=== PATIENT | female | born 1965 | race Caucasian/White ===

== ENCOUNTER 2023-06-06 15:04 | Outpatient (RCR) | payer OTHER, SELFPAY | END 2023-06-06 23:59 | disposition home or self-care (01) | LOC: RPT 15:04 | PROVIDERS: ATTENDING PHYSICIAN Physician Assistant Surgical; FAMILY PHYSICIAN Family Medicine | DX: M54.16 Radiculopathy, lumbar region (principal); M51.26 Other intervertebral disc displacement, lumbar region; M48.062 Spinal stenosis, lumbar region with neurogenic claudication; Z73.6 Limitation of activities due to disability | CPT/HCPCS: 97110; 97140; 97162 ==

== ENCOUNTER 2023-07-04 15:39 | Outpatient (RCR) | payer OTHER, SELFPAY | END 2023-07-04 23:59 | disposition home or self-care (01) | LOC: RPT 15:39 | PROVIDERS: ATTENDING PHYSICIAN Physician Assistant Surgical; FAMILY PHYSICIAN Family Medicine | DX: M54.16 Radiculopathy, lumbar region (principal); M51.26 Other intervertebral disc displacement, lumbar region; M48.062 Spinal stenosis, lumbar region with neurogenic claudication; Z73.6 Limitation of activities due to disability | CPT/HCPCS: 97110; 97140 ==

== ENCOUNTER → 2023-07-07 13:51 | Outpatient (REF) | payer OTHER, SELFPAY | LOC: MRI 3T 13:51 | PROVIDERS: ATTENDING PHYSICIAN Psychiatry & Neurology Neurology; FAMILY PHYSICIAN Family Medicine | DX: G44.52 New daily persistent headache (NDPH) (principal) | CPT/HCPCS: 70544; 70553; A9575 ==

== ENCOUNTER 2023-07-25 15:41 | Outpatient (RCR) | payer OTHER, SELFPAY | END 2023-07-25 23:59 | disposition home or self-care (01) | LOC: RPT 15:41 | PROVIDERS: ATTENDING PHYSICIAN Physician Assistant Surgical; FAMILY PHYSICIAN Family Medicine | DX: M54.16 Radiculopathy, lumbar region (principal); M51.26 Other intervertebral disc displacement, lumbar region; M48.062 Spinal stenosis, lumbar region with neurogenic claudication; Z73.6 Limitation of activities due to disability; R26.89 Other abnormalities of gait and mobility | CPT/HCPCS: 97110; 97140 ==

== ENCOUNTER → 2023-08-04 13:22 | Outpatient (REF) | payer OTHER, SELFPAY | LOC: RAD 13:22 | PROVIDERS: ATTENDING PHYSICIAN Family Medicine | DX: R07.81 Pleurodynia (principal) | CPT/HCPCS: 71101 ==

== ENCOUNTER → 2023-09-20 | Outpatient (REF) | payer OTHER, SELFPAY | LOC: DHSLP | PROVIDERS: ATTENDING PHYSICIAN Psychiatry & Neurology Neurology | DX: G47.30 Sleep apnea, unspecified (principal) | CPT/HCPCS: 95810 ==

== ENCOUNTER → 2023-11-24 05:58 | Day surgery (SDC) | payer OTHER, SELFPAY | LOC: GI 05:58 | PROVIDERS: ATTENDING PHYSICIAN Internal Medicine Gastroenterology | DX: K21.00 Gastro-esophageal reflux disease with esophagitis, without bleeding (principal); K22.2 Esophageal obstruction; K22.89 Other specified disease of esophagus; K44.9 Diaphragmatic hernia without obstruction or gangrene; K31.7 Polyp of stomach and duodenum | CPT/HCPCS: 43239; 88305 ==

== ENCOUNTER → 2024-03-12 14:36 | Outpatient (REF) | payer OTHER, SELFPAY | LOC: WDC 14:36 | PROVIDERS: ATTENDING PHYSICIAN Nurse Practitioner Family; FAMILY PHYSICIAN Family Medicine | DX: Z12.31 Encounter for screening mammogram for malignant neoplasm of breast (principal) | CPT/HCPCS: 77063; 77067 ==

== ENCOUNTER 2024-06-18 06:31 | Day surgery (SDC) | payer OTHER, SELFPAY ==
[2024-06-14 14:07] VITALS: BMI 30.1
[2024-06-18] VITALS (17 sets, daily range): BP systolic 83–147; BP diastolic 57–79; BMI 30.1
[2024-06-18] MEDS: NORMOSOL-R/PLASMALYTE-A 1000 IV (10:12)
[2024-06-18] MEDS: Pyridium 200 MG PO (10:54)
[2024-06-18] MEDS: BENADRYL 12.5 MG IV (12:00)
[2024-06-18] MEDS: PEPCID 20 MG IV (12:06)
[2024-06-18] MEDS: HEPARIN 5000 UNITS SC (13:01)
[2024-06-18] MEDS: ZOFRAN 4 MG IV (15:56)
[2024-06-18] MEDS: DILAUDID 0.5 MG IV ×2 (16:10→16:50)
[2024-06-18] MEDS: TORADOL 15 MG IV (16:18)
[2024-06-18] MEDS: COMPAZINE 5 MG IV (16:38)
== END 2024-06-18 19:30 | disposition home or self-care (01) ==
LOC: SDS 06:31
PROVIDERS: ATTENDING PHYSICIAN Obstetrics & Gynecology; FAMILY PHYSICIAN Family Medicine
DX: N81.2 Incomplete uterovaginal prolapse (principal); N39.3 Stress incontinence (female) (male); N36.41 Hypermobility of urethra; N83.8 Other noninflammatory disorders of ovary, fallopian tube and broad ligament
CPT/HCPCS: 57425; 58542; 57288; 88305; 36415; 86850; 86900; 86901; 93005; C1763; C1771

== ENCOUNTER → 2024-10-30 07:07 | Outpatient (REF) | payer OTHER, SELFPAY | LOC: RCS 07:07 | PROVIDERS: ATTENDING PHYSICIAN Internal Medicine Cardiovascular Disease; FAMILY PHYSICIAN Family Medicine | DX: R00.2 Palpitations (principal); R01.1 Cardiac murmur, unspecified | CPT/HCPCS: 93306 ==

== ENCOUNTER → 2024-12-18 09:02 | Outpatient (REF) | payer OTHER, SELFPAY | LOC: HWRAD 09:02 | PROVIDERS: ATTENDING PHYSICIAN Internal Medicine Cardiovascular Disease; FAMILY PHYSICIAN Family Medicine | DX: R00.2 Palpitations (principal); E78.5 Hyperlipidemia, unspecified | CPT/HCPCS: 75571 ==

== ENCOUNTER → 2025-01-10 08:21 | Outpatient (REF) | payer OTHER, SELFPAY | LOC: PAVMRI 08:21 | PROVIDERS: ATTENDING PHYSICIAN Nurse Practitioner Family; FAMILY PHYSICIAN Family Medicine | DX: D49.2 Neoplasm of unspecified behavior of bone, soft tissue, and skin (principal) | CPT/HCPCS: 72157; A9575 ==

== ENCOUNTER → 2025-02-24 14:16 | Outpatient (REF) | payer OTHER, SELFPAY | LOC: RAD 14:16 | PROVIDERS: ATTENDING PHYSICIAN Nurse Practitioner Family; FAMILY PHYSICIAN Family Medicine | DX: Z87.39 Personal history of other diseases of the musculoskeletal system and connective tissue (principal) | CPT/HCPCS: 77080 ==

== ENCOUNTER → 2025-03-13 07:22 | Outpatient (REF) | payer OTHER, SELFPAY | LOC: WDC 07:22 | PROVIDERS: ATTENDING PHYSICIAN Nurse Practitioner Family; FAMILY PHYSICIAN Family Medicine | DX: Z12.31 Encounter for screening mammogram for malignant neoplasm of breast (principal) | CPT/HCPCS: 77063; 77067 ==

== ENCOUNTER → 2025-05-02 11:04 | Outpatient (REF) | payer OTHER, SELFPAY | LOC: MRI 3T 11:04 | PROVIDERS: ATTENDING PHYSICIAN Nurse Practitioner Family; FAMILY PHYSICIAN Family Medicine | DX: K76.89 Other specified diseases of liver (principal); N28.1 Cyst of kidney, acquired | CPT/HCPCS: 74183; A9575 ==